=== PATIENT | female | born 1965 | race Two or more races ===

== ENCOUNTER 2018-07-31 13:37 | Inpatient (IN) | payer MEDICAID, OTHER ==
[2018-07-31] MEDS ORDERED: NS 1,000 ML IV ONE (14:38)
[2018-07-31] MEDS ORDERED: MECLIZINE HCL 25 MG TAB PO ONE (14:38)
[2018-07-31] MEDS ORDERED: ONDANSETRON 4 MG/2 ML VIAL IVP ONE (14:38)
--- NOTE | 2018-07-31 14:42 | EDPHY ---
H & P Stated Complaint: Hx unmedicated vertigo 2mos [employer]ER, Vertigo since lst night, nystagmus Time Seen by Provider: 07/31/18 14:08 HPI/ROS: CHIEF COMPLAINT: Vertigo HISTORY OF PRESENT ILLNESS: 53-year-old female presents with vertigo. Sudden onset of room spinning sensation yesterday evening. The vertigo was severe yesterday evening and associated with vomiting. Associated with a moderate headache yesterday evening. She was able to sleep well last night. When she awoke this morning, she had persistent vertigo, associated with 1 episode of vomiting. Currently feels somewhat better. No headache today. The vertigo increases with head and eye movement. Prior similar episode 2 months ago. History of borderline hypertension, not taking blood pressure medications. REVIEW OF SYSTEMS: complete 10 point ROS reviewed and is negative except for the noted elements in the HPI - Personal History Current Tetanus/Diphtheria Vaccine: No - Medical/Surgical History Hx Asthma: No Hx Chronic Respiratory Disease: No Hx Diabetes: No Hx Cardiac Disease: No Hx Renal Disease: No Hx Cirrhosis: No Hx Alcoholism: No Hx HIV/AIDS: No Hx Splenectomy or Spleen Trauma: No Other PMH: unmed HTN, - Social History Smoking Status: Never smoked - Physical Exam Exam: General Appearance: Alert, pleasant Eyes: Pupils equal and round, no conjunctival pallor or injection, horizontal nystagmus, fast component to the right ENT, Mouth: Mucous membranes moist Neck: Normal inspection Respiratory: Lungs are clear to auscultation Cardiovascular: Regular rate and rhythm Gastrointestinal: Abdomen is soft and nontender Neurological: Alert, oriented x3, cranial nerves II through XII intact, motor 5 /5, sensory intact to light touch Skin: Warm and dry, no rash Extremities: Nontender, no pedal edema Psychiatric: Mood and affect normal Constitutional: Initial Vital Signs Temperature (C) 36.4 C 07/31/18 13:57 Heart Rate 72 07/31/18 13:57 Respiratory Rate 18 07/31/18 13:57 Blood Pressure 214/97 H 07/31/18 13:57 O2 Sat (%) 96 07/31/18 13:57 O2 Delivery Mode Room Air Allergies/Adverse Reactions: No Known Allergies Allergy (Verified 07/31/18 16:21) Home Medications: Medication Instructions Recorded NK [No Known Home Meds] 12/16/15 Medical Decision Making - Diagnostics EKG Interpretation: EKG interpreted by me reveals normal sinus rhythm, rate 61, LVH nonspecific T- wave changes laterally. Interpretation: Abnormal EKG Imaging Results: Imaging Impressions Head CT 07/31/18 14:42 Impression: 1. No acute intracranial hemorrhage, swelling, or evidence of ischemia. 2. Low-lying right cerebellar tonsil. If headache persists, consider MRI of the brain, without and with IV contrast, to optimally characterize for possible Chiari malformation. Findings discussed with Emergency Department physician, Milka De La Fuente M.D., on July 31, 2018 at 1530. E:amm Imaging: Discussed imaging studies w/ medical office technology instructor Radiologist ED Course/Re-evaluation: This patient presents with vertigo. Blood pressure is markedly elevated on arrival, will recheck. Concern for elevated blood pressure causing the vertigo , especially since she had a headache yesterday. ?hypertensive urgency vs peripheral vertigo. IV normal saline, Zofran and meclizine given. 3:30 p.m.-serial blood pressures remain elevated, current blood pressure is 205/ 97. Labetalol 10 mg IV given. Feels better after Zofran and meclizine, continues to have mild vertigo. CT scan results discussed with the patient and her family. 5:00 p.m.-repeat blood pressure 164/85 after IV labetalol. Continues to feel better overall. Will admit to the hospitalist service for observation for hypertensive urgency. Differential Diagnosis: Differential diagnosis includes TIA, stroke, hypertensive emergency, intracranial hemorrhage, tumor, electrolyte abnormality and acute labyrinthitis. - Data Points Laboratory Results: Laboratory Results 07/31/18 14:39 07/31/18 14:39 07/31/18 07/31/18 07/31/18 14:39 14:39 14:39 WBC 7.25 10^3/uL 10^3/uL (3.80-9.50) RBC 4.60 10^6/uL 10^6/uL (4.18-5.33) Hgb 14.5 g/dL g/dL (12.6-16.3) Hct 41.2 % % (38.0-47.0) MCV 89.6 fL fL (81.5-99.8) MCH 31.5 pg pg (27.9-34.1) MCHC 35.2 g/dL g/dL (32.4-36.7) RDW 12.0 % % (11.5-15.2) Plt Count 217 10^3/uL 10^3/uL (150-400) MPV 11.6 fL fL (8.7-11.7) Neut % (Auto) 76.0 % H % (39.3-74.2) Lymph % (Auto) 21.0 % % (15.0-45.0) [place] % (Auto) 1.8 % L % (4.5-13.0) Eos % (Auto) 0.1 % L % (0.6-7.6) Baso % (Auto) 0.7 % % (0.3-1.7) Nucleat RBC Rel Count 0.0 % % (0.0-0.2) Absolute Neuts (auto) 5.51 10^3/uL 10^3/uL (1.70-6.50) Absolute Lymphs (auto) 1.52 10^3/uL 10^3/uL (1.00-3.00) Absolute Monos (auto) 0.13 10^3/uL L 10^3/uL (0.30-0.80) Absolute Eos (auto) 0.01 10^3/uL L 10^3/uL (0.03-0.40) Absolute Basos (auto) 0.05 10^3/uL 10^3/uL (0.02-0.10) Absolute Nucleated RBC 0.00 10^3/uL 10^3/uL (0-0.01) Immature Gran % 0.4 % % (0.0-1.1) Immature Gran # 0.03 10^3/uL 10^3/uL (0.00-0.10) Sodium 140 mEq/L mEq/L (135-145) Potassium 4.0 mEq/L mEq/L (3.5-5.2) Chloride 108 mEq/L mEq/L (97-110) Carbon Dioxide 23 mEq/l mEq/l (22-31) Anion Gap 9 mEq/L mEq/L (6-14) BUN 16 mg/dL mg/dL (7-23) Creatinine 0.6 mg/dL mg/dL (0.6-1.0) Estimated GFR > 60 Glucose 134 mg/dL H mg/dL (70-100) Calcium 9.2 mg/dL mg/dL (8.5-10.4) TSH Pending Medications Given: Discontinued Medications Sodium Chloride (Ns) 1,000 mls @ 0 mls/hr IV ONCE ONE; Wide Open PRN Reason: Protocol Stop: 07/31/18 14:39 Last Admin: 07/31/18 14:45 Dose: 1,000 mls Labetalol HCl (Trandate Injection) 10 mg IVP EDNOW ONE Stop: 07/31/18 15:36 Last Admin: 07/31/18 15:41 Dose: 10 mg Meclizine HCl (Meclizine Hcl) 25 mg PO EDNOW ONE Stop: 07/31/18 14:39 Last Admin: 07/31/18 14:45 Dose: 25 mg Ondansetron HCl (Zofran) 4 mg IVP EDNOW ONE Stop: 07/31/18 14:39 Last Admin: 07/31/18 14:45 Dose: 4 mg Departure - Departure Disposition: [facility] Clinical Impression: Vertigo, Hypertensive urgency Condition: Fair
[2018-07-31 14:55] LABS: PLATELET COUNT 217 10^3/uL (150-400)
[2018-07-31] MEDS ORDERED: LABETALOL HCL 5 MG/ML 20 ML MDV IVP ONE (15:35)
[2018-07-31] MEDS ORDERED: ONDANSETRON 4 MG/2 ML VIAL IVP PRN (17:30)
[2018-07-31] MEDS ORDERED: ONDANSETRON DISINTEGRATING 4 MG TAB PO PRN (17:30)
[2018-07-31] MEDS ORDERED: ACETAMINOPHEN 325 MG TAB PO PRN (17:30)
[2018-07-31] MEDS ORDERED: oxyCODONE IR 5 MG TAB PO PRN (17:30)
--- NOTE | 2018-07-31 17:45 | PDGENHP ---
History and Physical - Chief Complaint dizziness - History of Present Illness 53yo tunisian speaking F who presents with 1 day of dizziness. Was doing the dishes yesterday afternoon when she felt like the room was spinning around her. Having trouble with balance and also has associated nausea and vomiting. No vision or hearing changes. She has had some right eye redness intermittently for several months but no painful eye movements or loss of vision. No headache or other focal neurologic symptoms. No tinnitus. No fevers. Symptoms are not positional and don't change when she moves her head. She had similar episode to this 3 months ago that resolved after 4-5 hours however this episode persisted so she came to ED. In the ED, her SBP was noted to be 214. She was given a dose of IV labetalol but her symptoms persisted. A non-contrasted head CT was negative for acute abnormality. Case discussed with ED physician Milka De La Fuente. Of note, she does not see a doctor regularly. She came to this ED in 2016 for epistaxis and was noted to have a BP of 242/100. This improved and she was discharged from the ED but she has not seen a doctor nor checked her BP regularly since. History Information - Allergies/Home Medication List Allergies/Adverse Reactions: No Known Allergies Allergy (Verified 07/31/18 16:21) Home Medications: NK [No Known Home Meds] 12/16/15 [Last Taken Unknown] I have personally reviewed and updated: family history, medical history, social history, surgical history - Past Medical History Additional medical history: does not see physician so no formal diagnoses but has hypertension based on prior visit - Surgical History Reports: no pertinent surgical hx - Family History Positive for: non-pertinent - Social History Smoking Status: Never smoked Alcohol Use: None Drug Use: None Additional social history: Lives with daughter, independent in ADLs Review of Systems Review of Systems: ROS: 10pt was reviewed & negative except for what was stated in HPI & below Physical Exam Physical Exam: Temp Pulse Resp BP Pulse Ox 36.4 C 72 18 214/97 H 96 07/31/18 13:57 07/31/18 13:57 07/31/18 13:57 07/31/18 13:57 07/31/18 13:57 Constitutional: no apparent distress, appears nourished, not in pain Eyes: PERRL, EOMI, scleral injection (right eye with some mild dulce-orbital edema), other (horizontal and torsional nystagmus, ptyergium on right eye) Ears, Nose, Mouth, Throat: moist mucous membranes, hearing normal, ears appear normal, no oral mucosal ulcers Cardiovascular: regular rate and rhythym, no murmur, rub, or gallop, No edema Respiratory: no respiratory distress, no rales or rhonchi, clear to auscultation Gastrointestinal: normoactive bowel sounds, soft, non-tender abdomen, no palpable masses Genitourinary: no bladder fullness, no bladder tenderness Skin: warm, normal color, no rashes or abrasions, no fluctuance, no induration, No mottled Musculoskeletal: full muscle strength, no muscle tenderness, normal joint ROM, no joint effusions Neurologic: AAOx3, sensation intact bilaterally, CN II-XII Intact, other ( normal heel to jackson and rapid alternating movements of hands), No weakness, No numbness, No pronator drift, No facial droop Psychiatric: interacting appropriately, not anxious, not encephalopathic, thought process linear Lab Data & Imaging Review 07/31/18 14:39 07/31/18 14:39 WBC 7.25 10^3/uL (3.80-9.50) 07/31/18 14:39 RBC 4.60 10^6/uL (4.18-5.33) 07/31/18 14:39 Hgb 14.5 g/dL (12.6-16.3) 07/31/18 14:39 Hct 41.2 % (38.0-47.0) 07/31/18 14:39 MCV 89.6 fL (81.5-99.8) 07/31/18 14:39 MCH 31.5 pg (27.9-34.1) 07/31/18 14:39 MCHC 35.2 g/dL (32.4-36.7) 07/31/18 14:39 RDW 12.0 % (11.5-15.2) 07/31/18 14:39 Plt Count 217 10^3/uL (150-400) 07/31/18 14:39 MPV 11.6 fL (8.7-11.7) 07/31/18 14:39 Neut % (Auto) 76.0 % (39.3-74.2) H 07/31/18 14:39 Lymph % (Auto) 21.0 % (15.0-45.0) 07/31/18 14:39 [place] % (Auto) 1.8 % (4.5-13.0) L 07/31/18 14:39 Eos % (Auto) 0.1 % (0.6-7.6) L 07/31/18 14:39 Baso % (Auto) 0.7 % (0.3-1.7) 07/31/18 14:39 Nucleat RBC Rel Count 0.0 % (0.0-0.2) 07/31/18 14:39 Absolute Neuts (auto) 5.51 10^3/uL (1.70-6.50) 07/31/18 14:39 Absolute Lymphs (auto) 1.52 10^3/uL (1.00-3.00) 07/31/18 14:39 Absolute Monos (auto) 0.13 10^3/uL (0.30-0.80) L 07/31/18 14:39 Absolute Eos (auto) 0.01 10^3/uL (0.03-0.40) L 07/31/18 14:39 Absolute Basos (auto) 0.05 10^3/uL (0.02-0.10) 07/31/18 14:39 Absolute Nucleated RBC 0.00 10^3/uL (0-0.01) 07/31/18 14:39 Immature Gran % 0.4 % (0.0-1.1) 07/31/18 14:39 Immature Gran # 0.03 10^3/uL (0.00-0.10) 07/31/18 14:39 Sodium 140 mEq/L (135-145) 07/31/18 14:39 Potassium 4.0 mEq/L (3.5-5.2) 07/31/18 14:39 Chloride 108 mEq/L (97-110) 07/31/18 14:39 Carbon Dioxide 23 mEq/l (22-31) 07/31/18 14:39 Anion Gap 9 mEq/L (6-14) 07/31/18 14:39 BUN 16 mg/dL (7-23) 07/31/18 14:39 Creatinine 0.6 mg/dL (0.6-1.0) 07/31/18 14:39 Estimated GFR > 60 07/31/18 14:39 Glucose 134 mg/dL (70-100) H 07/31/18 14:39 Calcium 9.2 mg/dL (8.5-10.4) 07/31/18 14:39 Visualized and Interpreted imaging results: Yes Interpretation: Ct head: no acute hemorrhage/swelling or e/o ischemia. Low lying right cerebellar tonsil. Visualized and Interpreted EKG results: Yes EKG additional interpertation: ECG: sinus rhythm, LVH, flattened T waves in lateral leads (interp by me) otherwise no acute ischemic changes Assessment & Plan Assessment: 53yo tunisian speaking F with untreated hypertension presents with one day of acute onset vertigo. Plan: 1. Acute vertigo: Unclear if this is peripheral process vs central process. Could be related to elevated BP but this appears to be more of a chronic issue. She also has a low-lying right cerebellar tonsil on CT that could represent a Chiari malformation and be contributing. - Brain MRI w/wo contrast - PT/OT 2. Severe hypertension: Chronic as evidenced by LVH on ECG. Untreated. - Will hold on initiating anti-hypertensive until head imaging is complete so ensure no stroke. Reasonable to start ACEi vs CCB if negative. 3. Right conjunctival injection: No red flag symptoms such as vision loss or painful eye movements. Likely viral - Trial visine lubricant drops VTE ppx: SCDs Code: full Dispo: Admit under observation
[2018-07-31] MEDS ORDERED: ONDANSETRON 4 MG/2 ML VIAL ONE (17:50)
--- NOTE | 2018-07-31 19:04 | CPEKG ---
Test Reason : OPEN Blood Pressure : / mmHG Vent. Rate : 061 BPM Atrial Rate : 061 BPM P-R Int : 132 ms QRS Dur : 093 ms QT Int : 382 ms P-R-T Axes : 012 070 074 degrees QTc Int : 385 ms Sinus rhythm Consider left ventricular hypertrophy Nonspecific T abnormalities, lateral leads Confirmed by Milka De La Fuente ([id number]) on 07/31/2018 7:03:27 PM Referred By: Confirmed By:Milka De La Fuente
[2018-07-31] MEDS ORDERED: hydrALAZINE 25 MG TAB PO PRN (19:52)
[2018-07-31] MEDS: NAPHAZOLINE HCL/PHENIR 15 ML OPHT.BTL RTEYE SCH (20:17)
[2018-08-01 05:03] LABS: PLATELET COUNT 214 10^3/uL (150-400)
[2018-08-01] MEDS: NAPHAZOLINE HCL/PHENIR 15 ML OPHT.BTL RTEYE SCH ×4 (05:15→21:21)
[2018-08-01] MEDS: MECLIZINE HCL 25 MG TAB PO PRN (09:57)
--- NOTE | 2018-08-01 12:25 | HOSPPROG ---
Hospitalist Progress Note Assessment/Plan: seen by me w medical spanish medical interpreter today DIAGNOSES: * acute vertigo, uncertain etiology; by my exam the is behaving as a central mechanism * low riding cerebellar tonsil on CT scan * uncontrolled HTN * prior hx of CVA? uncle * mild hyperglycemiaar hx I reviewed the patient's CT scan with Dr. Bob Wang of Neurology, along with the patient's symptoms. On CT scan the cerebellar abnormality does not appear likely significant but it is agreed that an MRI will help to clarify whether there is any significant garcia RA type malformation. That being said the onset of new episodic vertigo at age 53 without other prior and more typical symptoms of Chiari malformation is unlikely to be due to that and to the. MRI is ordered and pending. PLANS: * Await MRI * Continue symptomatic management of vertigo * will not treat HTN now at present levels until it is determined if there is stroke or cerebrovasc cause of sxs * if no cva, will begin aggressive tx of HTN now, and I have reviewed w the patient this will need to be an ongoing alf treatment/management issue * will begin asa now as no bleed on CT * obesity * check Hg A1c SUBJECTIVE: still w vertigo, improved slightly by meclizine still w poor balance w standing/walking no headache, earache, tinnitus, or decreased hearing nausea better today no diplopia, no other neuro sxs OBJECTIVE Vitals reviewed: Remains hypertensive otherwise normal without fever Retail Salesman, my review: Exam: alert oriented skin warm dry color ok resps not labored lungs clear BSs heart regular abd soft nondistended nontender, bowel sounds present limbs warm, no edema iv site ok Lab data: CBC and metabolic panel are unremarkable on repeat today Imaging: I reviewed the images of the CT scan of the head in detail and reviewed them with Dr. Wang of Neurology. The only abnormality of note is mild inferior displacement of cerebellar tonsil, which the radiologist noted along with question of whether it could represent a Chiari malformation. Objective: Vital Signs Temp Pulse Resp BP Pulse Ox 36.7 C 75 12 171/78 H 92 08/01/18 11:24 08/01/18 11:24 08/01/18 11:24 08/01/18 11:24 08/01/18 11:24 Laboratory Results 08/01/18 04:43 08/01/18 04:43 07/31/18 08/01/18 08/02/18 06:59 06:59 06:59 Intake Total 1000 Balance 1000 - Time Spent With Patient Time Spent with Patient: greater than 35 minutes Time Spent with Patient: Greater than 35 minutes spent on this patients care, greater than 50% of time spent counseling, educating, and coordinating care regarding the above mentioned plan. ICD10 Worksheet Patient Problems: Problems Problem Status Onset Hypertensive urgency Acute Vertigo Acute
--- NOTE | 2018-08-01 14:02 | ASMTCMCOM ---
CM Note CM Note Notes: Pt admitted for vertigo and high blood pressure which appears to be untreated. She lives at home w/her dtr and is normally indepedent with ADLs. Unclear if her Medicaid is current, also lists [employer] [facility], PT/OT evals pending, CM w/f. DC Plan: TBD Date Signed: 08/01/2018 02:02 PM Electronically Signed By:Gisella Mendosa RN
[2018-08-01] MEDS: ASPIRIN EC 81 MG TAB PO SCH (15:38)
[2018-08-01] MEDS ORDERED: GADOBUTROL 10 ML VIAL IVP ONE (16:09)
[2018-08-02] MEDS: NAPHAZOLINE HCL/PHENIR 15 ML OPHT.BTL RTEYE SCH ×3 (05:15→16:05)
[2018-08-02] MEDS: ASPIRIN EC 81 MG TAB PO SCH (08:58)
--- NOTE | 2018-08-02 09:39 | PDMN ---
Medical Necessity Medical necessity: MCG: M152 dizziness A-1 INPT for ongoing vertigo with severe HTN req further monitoring and tx. MRI pend. status changed to INPT 08/01/18
[2018-08-02] MEDS ORDERED: LISINOPRIL 10 MG TAB PO SCH (11:15)
[2018-08-02] MEDS: MECLIZINE HCL 25 MG TAB PO PRN (13:11)
--- NOTE | 2018-08-02 14:30 | GCON ---
CHIEF COMPLAINT: Dizziness. HISTORY OF PRESENT ILLNESS: Patient is a 53-year-old Turkmen-speaking only female who presented to the emergency department 2 days ago with a complaint of dizziness. Patient has some difficulty with her balance,denies any issues with her vision. Patient reports that she does get headaches, which can be come worse with coughing, sneezing, and bearing down. Patient underwent an MRI of the brain, which shows a Chiari malformation and we were asked for consultation. REVIEW OF SYSTEMS: A 10-point review of systems was performed and negative aside from what was mentioned in the HPI. ALLERGIES: No known drug allergies. HOME MEDICATIONS: No known home medications. MEDICAL HISTORY: Patient is not seen regularly by a physician, so she has no formal diagnosis, but did have a hypertension upon arrival. SURGICAL HISTORY: No pertinent surgical history. FAMILY HISTORY: Noncontributory to her current situation. SOCIAL HISTORY: Patient has never smoked cigarettes. She does not drink alcohol. She does not use illicit drugs. She lives with her daughter. LABORATORY RESULTS: White blood cell count 5.86, hemoglobin 13.5, hematocrit 39.1, platelets are 214. Sodium 138, potassium 3.6, BUN 13, creatinine 0.8, glucose 109. DIAGNOSTIC IMAGING: CT of the brain performed without contrast on July 31, 2018, demonstrates no acute intracranial hemorrhage, swelling, or evidence of ischemia, low-lying right cerebral tonsil. MRI of the brain performed with and without contrast on August 01, 2018, demonstrates a cerebellar ectopia versus a mild Chiari I malformation involving the right cerebellar tonsil extending below the foramen magnum by 6 to 7 mm. Minimal nonspecific signal abnormalities in the white matter of the right frontal periventricular and left frontal subcortical white matter. No abnormal intracranial enhancement.. PHYSICAL EXAM: VITAL SIGNS: Blood pressure is 191/93, heart rate 65, respiratory rate 16, oxygen saturations 95% on room air, temperature is 36.9 degrees Celsius. HEENT: Head is normocephalic and atraumatic. Pupils are equal, round, and reactive to light. EOMIs intact. RESPIRATORY/CARDIAC: Deferred. ABDOMEN: Deferred. GENITOURINARY/RECTAL: Deferred. NEUROLOGIC: The patient is awake, alert, oriented to name, place, location, date, time, and situation. Memory intact to immediate, past, and current events. Speech: No aphasia or dysphonia. Cranial nerves 2- through 12 are grossly intact. Motor: Patient has 5/5 strength in all muscle groups in bilateral upper and lower extremities to include deltoids, biceps, triceps, brachioradialis, wrist flexion , extensors, body masker, intrinsic fingers, iliopsoas, quadriceps, hamstring, plantar flexion, dorsiflexion, EHL testing. Sensation is grossly intact to light touch throughout all dermatomal distributions of bilateral lower extremities. Reflexes: Brachialis, knee jerk are 2+/4. Babinski is negative. Echols's is negative. ASSESSMENT/PLAN: Patient is a 53-year-old Turkmen-speaking only female who was seen by myself and Dr. Bentley with a hospital oracle forms developer at the bedside. The patient presented 2 days ago with complaints of dizziness and underwent a CT of the brain, which suggested a possible Chiari malformation. MRI of the brain was done yesterday and show Chiari I malformation involving the right cerebellar tonsil that extends below the foramen magnum by 6 to 7 mm. Patient does report increasing headaches with coughing, sneezing, and bearing down. Patient currently denies any headache at this time. Although dizziness is not classical symptom of Chiari malformation, it could possibly accompany her other headache symptoms. I explained Chiari decompression surgery to her, she had several questions which I answered. I offered her followup as an outpatient with Dr. Sheffield who is fluent in Turkmen and she will see in the next 2 weeks. Patient understands that if she considers surgery, this can be done as an outpatient basis and does not need to be done during this hospitalization. Once her hypertension is controlled, we will be able to better evaluate present symptoms and what is deriving from her Chiari. She will follow up as an outpatient with Dr. Sheffield in 2 weeks and she will call our office with any questions or concerns. The patient was seen and examined at the bedside with myself and Dr. Bentley today, August 02, 2018, at 12 p.m. Please contact Neurosurgery with any questions or concerns. /[id number]/MODL MTDD
[2018-08-02] MEDS ORDERED: LABETALOL HCL 200 MG TAB PO ONE (14:34)
[2018-08-02 15:39] VITALS: BP 174/69
--- NOTE | 2018-08-02 16:43 | PDDCSUM ---
Discharge Summary Discharge Summary: DISCHARGE DIAGNOSES: * vertigo * Chiari type 1 malformation * uncontrolled hypertension CONSULTANTS: Dr. Bentley PROCEDURES: CT scan of head MRI of brain with and without contrast HOSPITAL COURSE SUMMARY: This patient was admitted the hospital when she presented to the ER with her 2nd episode of vertigo after previous episode 2 months ago. This was associated with no change in hearing, tinnitus, earache, head injury, fevers. There were no other neurologic symptoms. However the patient did admit on questioning that if she does Valsalva type maneuver or coughs hard she will get some headache with that. In the ER CT was done of the brain and the major finding there was a concern for Chiari malformation. The patient therefore underwent MRI scanning which confirmed a type 1 Chiari malformation. She was admitted the hospital and treated with meclizine for the vertigo. Gradually the vertigo improved quite significantly. At this point it is not entirely resolved but she is feeling much better, is eating well and up walking safely without difficulty. As far as blood pressure she was started on some Norvasc and lisinopril. The blood pressures are still high but if improved quite significantly. She will need ongoing blood pressure follow-up. Notably she had been here 2 months ago and blood pressures were high than but she was not prescribed blood pressure medicine at the time of discharge. Because of the finding of Chiari malformation along with suggestive symptoms, neurosurgical consultation was obtained. It was felt that her symptoms may well be due to her malformation but that she did not have an emergent scenario that dictated that she have surgery or other treatments at this moment. Is recommended that she make an appoint with Dr. Cr Sheffield of the neurosurgery group in the near future as he is fluent in Palestinian and can talk to her in great detail about her symptoms and treatment options with benefits and risks. All of her visits in conversations were done with the assistance of medical Palestinian interpreters as that is her primary language. PENDING TEST RESULTS: None MEDICATION CHANGES: Addition of Norvasc 10 mg daily and lisinopril 10 mg daily FOLLOW-UP PLAN: With her primary care physician at [facility] in 5 days for blood pressure follow-up With Dr. Cr Sheffield of Neurosurgery in 2 weeks for further assessment of her Chiari malformation and review of treatment options including possible surgery Greater than 35 minutes bedside and care coordination time today
--- NOTE | 2018-08-02 16:45 | ASMTLACE ---
LACE Length of stay for Answers: 3 days current admission Acuity / Level of Answers: Yes Care: Did the patient have an inpatient admission? Comorbidities - select Answers: Other Notes: HTN all that apply # of Emergency department Answers: 1-2 visits in the last 6 months Score: 8 Date Signed: 08/02/2018 04:45 PM Electronically Signed By:ЮЛИЯ Baez
--- NOTE | 2018-08-02 16:46 | ASMTCMCOM ---
CM Note CM Note Notes: PT/OT rec home. Med Data to submit emergency Medicaid irene. No CM d/c needs identified. Date Signed: 08/02/2018 04:46 PM Electronically Signed By:ЮЛИЯ Baez
== END 2018-08-02 17:40 | disposition home or self-care (01) | DRG 149 ==
LOC: F3E 18:02 → OBSVTOIN 08-01 16:29
PROVIDERS: ADMIT Internal Medicine; ATTEND Internal Medicine
DX: R42 Dizziness and giddiness (principal); G93.5 Compression of brain; I10 Essential (primary) hypertension; E66.9 Obesity, unspecified; Z23 Encounter for immunization
CPT/HCPCS: 96374; 97161-GP; 97165-GO; A9585; G0008; G0378; J2405